=== PATIENT | female | born 1955 | race Two or more races ===

== ENCOUNTER 2019-03-19 18:58 | Emergency (ER) | payer SELFPAY ==
[~2019-03-19] VITALS: Ht 162.6 cm; Wt 66.7 kg
--- NOTE | 2019-03-19 19:20 | NUR ---
BIBSELF FROM HOME. TO ER BED 11. AAOX4. NO RESP DISTRESS. AMBULATORY. C/O ABDOMINAL PAIN X 2 WEEKS. PT REPORTS PAIN AT [facility] PAIN UPON PALPATION AND NOTED HARD MASS. 02/14. NO NVD. NO PROBLEN URINATING AND HAVING BM. MD AT BEDSIDE FOR EVAL. AWAITING ORDERS.
[2019-03-19 19:48] LABS: APPEARANCE,URINE Clear (CLEAR); BILIRUBIN,URINE Negative (NEGATIVE); BLOOD, URINE Negative Ery/uL (NEGATIVE); COLOR,URINE Yellow (YELLOW); KETONES,URINE Negative (NEGATIVE); LEUKOCYTE ESTERASE ,URINE Negative (NEGATIVE); NITRITE, URINE Negative (NEGATIVE); PROTEIN,URINE Negative (NEGATIVE); UGLUCOSE Negative (NEGATIVE); UROBILINOGEN,URINE 0.2 EU/dL (0.2)
[2019-03-19 19:50] LABS: BASOPHILS % (AUTO) 0.8 % (0.0-2.0); EOSINOPHILS % (AUTO) 1.5 % (0.0-6.0); HEMATOCRIT 36 % (33-45); HEMOGLOBIN 12.2 g/dL (11.5-14.8); LYMPHOCYTES # (AUTO) 2.3 /CMM (0.8-4.8); LYMPHOCYTES % (AUTO) 41.9 % (20.0-44.0); MEAN CORPUSCULAR HGB CONC 33 g/dl (31.0-36.0); MEAN CORPUSCULAR VOLUME 92 fL (82-100); MONOCYTES # (AUTO) 0.3 /CMM (0.1-1.30); MONOCYTES % (AUTO) 5.8 % (2.0-12.0); NEUTROPHILS # (AUTO) 2.8 /CMM (1.8-8.9); PLATELET COUNT (AUTO) 281 /CMM (150-450); RED BLOOD CELL COUNT(AUTO) 3.96 MIL/uL (4.0-5.2); WHITE BLOOD COUNT (AUTO) 5.5 K/uL (4.3-11.0)
--- NOTE | 2019-03-19 19:50 | NUR ---
IV LINE OBTAINED ON R AC 20G. BLOOD DRAWN AND GIVEN TO EXCHANGE ADMINISTRATOR. URINE SENT TO LAB
[2019-03-19 19:57] LABS: CALCIUM, SERUM 9.2 mg/dL (8.5-10.1); CREATININE 0.7 mg/dL (0.6-1.3); POTASSIUM 3.3 mmol/L (3.5-5.1)
[2019-03-19] MEDS ORDERED: IV NS 0.9% 1,000 ML BAG IV ONE (20:00)
[2019-03-19 20:03] LABS: ALBUMIN 3.8 g/dL (3.4-5.0); BILIRUBIN,DIRECT 0.1 mg/dL (0.0-0.2); BILIRUBIN,TOTAL 0.3 mg/dL (0.2-1.0); TOTAL PROTEIN, SERUM 7.8 g/dL (6.4-8.2)
[2019-03-19] MEDS ORDERED: IOHEXOL-300 100 ML VIAL IV ONE (20:03)
[2019-03-19] MEDS ORDERED: IV NS 0.9% 250 ML IV ONE (20:03)
[2019-03-19] MEDS ORDERED: CT SWABBABLE VALVE TRANS SET 1 EA INFUS.SET MC ONE (20:03)
--- NOTE | 2019-03-19 21:46 | NUR ---
Patient discharged to home in stable condition. Written and verbal after care instructions given. Patient verbalizes understanding of instruction.IV removed. Catheter intact and site benign. Pressure and 4x4 applied to site. No bleeding noted. Pt ambulatory with a steady gait
[2019-03-19 21:47] VITALS: BP 145/95
== END 2019-03-19 21:48 | disposition home or self-care (01) ==
LOC: ER 19:06
DX: R19.00 Intra-abdominal and pelvic swelling, mass and lump, unspecified site (principal); R10.13 Epigastric pain; R10.32 Left lower quadrant pain; Z98.890 Other specified postprocedural states; Z60.2 Problems related to living alone
CPT/HCPCS: 36415; 74177; 80048; 80076; 81001; 83690; 85025; 99284; J7030; J7050; Q9967; 81000-TC